=== PATIENT | female | born 1955 ===

== ENCOUNTER 2025-04-11 11:00 | Day surgery (SDC) | payer OTHER ==
[2025-04-05 10:23] VITALS: BP 150/94
[~2025-04-11] VITALS: Ht 162.6 cm; Wt 84.4 kg
[~2025-04-11 11:00] MED LIST: LOSARTAN POTASS50 MG PO; MULTI-VITAMIN1 EACH PO; NORVASC5 MG PO; SYNTHROID88 MCG PO
[2025-04-11] MEDS ORDERED: CEFAZOLIN SODIUM 1,000 MG VIAL ONE (13:30)
[2025-04-11] MEDS ORDERED: BUPIVACAINE HCL/MPF 0.5% 30ML VIAL ONE (16:01)
[2025-04-11] MEDS ORDERED: POVIDONE-IODINE 118 ML BOTT TOP ONE (17:32)
[2025-04-11] MEDS ORDERED: hydrALAZINE HCL 20 MG VIAL ONE (17:33)
[2025-04-11] MEDS ORDERED: TRAM1TAB98 PO (18:36)
[2025-04-11] MEDS ORDERED: DUI500 PO (18:36)
[2025-04-12 04:24] VITALS: O2SAT 99
[2025-04-13 10:38] VITALS: BP 142/65
== END 2025-04-12 00:35 | disposition home or self-care (01) ==
LOC: CIR.AMB 11:00
PROVIDERS: ATTEND Orthopaedic Surgery
DX: S86.311A Strain of muscle(s) and tendon(s) of peroneal muscle group at lower leg level, right leg, initial encounter (principal); M66.88 Spontaneous rupture of other tendons, other sites; S91.021A Laceration with foreign body, right ankle, initial encounter; Z91.041 Radiographic dye allergy status; Z88.6 Allergy status to analgesic agent